=== PATIENT | male | born 1960 | race Caucasian/White ===

== ENCOUNTER 2018-02-19 20:58 | Emergency (ER) | payer SELFPAY ==
[~2018-02-19] VITALS: Ht 172.7 cm; Wt 2.7 kg
[2018-02-19 21:18] VITALS: Ht 172.7 cm; Wt 2.7 kg
[2018-02-19 22:00] VITALS: BP 127/80
== END 2018-02-19 22:00 | disposition home or self-care (01) ==
LOC: ED 20:58
DX: S16.1XXA Strain of muscle, fascia and tendon at neck level, initial encounter (principal); S43.401A Unspecified sprain of right shoulder joint, initial encounter; S63.501A Unspecified sprain of right wrist, initial encounter; V49.9XXA Car occupant (driver) (passenger) injured in unspecified traffic accident, initial encounter; Y93.I9 Activity, other involving external motion; Y92.488 Other paved roadways as the place of occurrence of the external cause; Y99.8 Other external cause status